=== PATIENT | female | born 1995 | race Caucasian/White ===

== ENCOUNTER 2021-03-12 15:00 | Emergency (ER) | payer OTHER ==
[2021-03-12 15:21] VITALS: BP 113/75; PULSE 105; TEMP 98; BMI 26.4
[2021-03-12] MEDS ORDERED: IBUPROFEN 600 MG TABLET (FP) PO ONE ×2 (15:34→15:52)
== END 2021-03-12 15:55 | disposition home or self-care (01) ==
LOC: JERFT 15:00
DX: H60.502 Unspecified acute noninfective otitis externa, left ear (principal)
CPT/HCPCS: 99283-25